=== PATIENT | female | born 1975 | race Hispanic/Latino ===

== ENCOUNTER → 2016-06-03 | Outpatient (REF) ==
--- NOTE | 2016-06-03 15:22 | Diagnostic Imaging Report ---
INDICATION: Positive TB skin test. PA and lateral views of the chest are obtained. COMPARISON: No previous study is available for comparison at this time. FINDINGS: Heart size and pulmonary vasculature are within normal limits, and the lungs are clear, bilaterally. IMPRESSION: Unremarkable chest. Dictated by: Dictated on workstation # [id number]
== END | disposition home or self-care (01) ==
LOC: OCC 14:50
PROVIDERS: ATTEND Nurse Practitioner Family
CPT/HCPCS: 71020